=== PATIENT | female | born 1995 | race Caucasian/White ===

== ENCOUNTER 2019-03-30 02:44 | Emergency (ER) | payer SELFPAY ==
[~2019-03-30] VITALS: Ht 162.6 cm; Wt 60.0 kg
--- NOTE | 2019-03-30 03:14 | NUR ---
Pt bib remsa c/o gross etoh use reported by friends and inablity to amb. Pt is A+ox4. Smells of etoh and slurring words. Neuro otherwise intact. Monitoring applied. Vss. Hob abover 45 derees. Wctm.
--- NOTE | 2019-03-30 03:53 | NUR ---
Pt sleeping comfortably on gurney. Rr even and unlabored. Monitoring remains intact. Wctm.
--- NOTE | 2019-03-30 05:02 | NUR ---
Pt sleeping comfortably on gurney. Rr even and unlabored. Monitoring remains intact. Wctm.
[2019-03-30 06:02] VITALS: BP 100/64
--- NOTE | 2019-03-30 06:02 | NUR ---
This rn attempted to ambulate pt. Pt unable to ambulate at this time. aware. Corina. Vss.
== END 2019-03-30 06:31 | disposition home or self-care (01) ==
LOC: ED 06:25
DX: F10.120 Alcohol abuse with intoxication, uncomplicated (principal); G31.2 Degeneration of nervous system due to alcohol
CPT/HCPCS: 99283

== ENCOUNTER 2019-09-17 22:10 | Emergency (ER) | payer OTHER ==
[~2019-09-17] VITALS: Ht 165.1 cm; Wt 82.5 kg
[2019-09-17 22:32] VITALS: BP 154/88
[2019-09-17 23:04] LABS: MICROSCOPIC NOT IND
[2019-09-17 23:12] LABS: CULTURE INDICATED? NO
[2019-09-18 00:48] LABS: MEAN CORPUSCULAR HGB CONC 32.9 g/dL (32.4-35.8); MEAN CORPUSCULAR VOLUME 91.3 fL (80-100); MEAN PLATELET VOLUME 7.9 fL (7.4-10.4); PLATELET COUNT 320 x10^3/uL (130-400); RED BLOOD COUNT 4.81 x10^6/uL (3.82-5.3); RED CELL DISTRIBUTION WIDTH 12.6 % (9.6-15.2)
[2019-09-18 00:59] LABS: ALANINE AMINOTRANSFERASE 39 U/L (12-78); ALBUMIN 3.7 g/dL (3.4-5.0); ANION GAP 6 mmol/L (5-15); CHLORIDE 111 mmol/L (98-107); CREATININE 0.76 mg/dL (0.55-1.02)
[2019-09-18 01:16] LABS: ALKALINE PHOSPHATASE 90 U/L (45-117); BILIRUBIN,TOTAL 0.3 mg/dL (0.2-1.0)
[2019-09-18 01:45] LABS: BASOPHILS % (AUTO) 1 % (0-1); EOSINOPHILS # (AUTO) 0.14 x10^3/uL (0-0.4); EOSINOPHILS % (AUTO) 1 % (1-7); LYMPHOCYTES # (AUTO) 3.48 x10^3/uL (1-3.4); LYMPHOCYTES % (AUTO) 21 % (22-44); MD SCAN; MONOCYTES # (AUTO) 1.59 x10^3/uL (0.2-0.8); MONOCYTES % (AUTO) 10 % (2-9); NEUTROPHILS # (AUTO) 11.02 x10^3/uL (1.8-6.8); NEUTROPHILS % (AUTO) 68 % (42-75)
== END 2019-09-18 03:13 | disposition home or self-care (01) ==
LOC: ED 09-18 02:22
DX: Z32.01 Encounter for pregnancy test, result positive (principal); R10.32 Left lower quadrant pain
CPT/HCPCS: 36415; 76770; 76801; 80053; 81003; 84702; 85025; 99284